=== PATIENT | male | born 1985 | race Caucasian/White ===

== ENCOUNTER 2024-10-24 04:06 | Emergency (ER) | payer MEDICAID, SELFPAY ==
[2024-10-24 04:20] VITALS: BP 120/94; BP 128/78; PULSE 100; PULSE 96; RESP 16; TEMP 36.3; O2SAT 97; O2SAT 98; BMI 28.7
--- NOTE | 2024-10-24 04:38 | PC.NURSE ---
Pt aox4, irritable during assessment, cooperative. VSS. No apparent distress noted. Denies SI/Hi at this time. Pt reports being upset earlier and making SI statements. Reports not being upset at this time and not having SI. Pt is changed over by security. Belongings secured. Lab work drawn. Unable to provide urine sample at this time. Pending lab results and physician eval.
[2024-10-24 04:59] LABS: Basophils Absolute Auto 0.1 X10*3/uL (0.0-0.2); Basophils Percent Auto 0.7 % (0-2); Eosinophils Absolute Auto 0.2 X10*3/uL (0.0-0.4); Eosinophils Percent Auto 1.9 % (0-4); Hematocrit 45.9 % (42.0-52.0); Hemoglobin 16.1 g/dl (14.0-18.0); Imm Gran Abs Auto 0.02 X10*3/uL (0.00-0.03); Imm Gran Pct Auto 0.2 % (0.0-0.4); Lymphocytes Absolute Auto 2.3 X10*3/uL (1.2-4.9); Lymphocytes Percent Auto 26.4 % (20-40); MANUAL DIFF FLAG NO; Mean Corpuscular HGB Conc 35.1 g/dl (31.0-36.0); Mean Corpuscular Hemoglobin 31.3 pg (27.0-33.0); Mean Corpuscular Volume 89.1 fL (80.0-98.0); Monocytes Absolute Auto 0.7 X10*3/uL (0.1-1.2); Monocytes Percent Auto 8.1 % (2-11); Neutrophils Absolute Auto 5.5 x10*3/uL (2.0-8.3); Neutrophils Percent Auto 62.7 % (45-73); Platelet Count 219 X10*3/uL (160-400); Red Blood Count 5.15 X10*6/uL (4.60-5.80); White Blood Count 8.8 X10*3/uL (4.8-10.8)
[2024-10-24 05:21] LABS: Alanine Aminotransferase 24 U/L (0-40); Albumin Level 4.5 g/dL (3.5-5.0); Alkaline Phosphatase 61 U/L (39-117); Anion Gap 14 (12-20); Aspartate Amino Transferase 22 U/L (5-37); Bilirubin Total 0.7 mg/dL (0.0-1.0); Blood Urea Nitrogen 12 mg/dL (9-16); Calcium 9.7 mg/dL (8.4-10.2); Carbon Dioxide 21 mmol/L (22-29); Chloride 107 mmol/L (96-108); Creatinine Clr Calc Pharmacy 117.1; Estimated Glomerular Filt Rate > 60; Ethanol < 10 mg/dL; Glucose Random 110 mg/dL (60-115); Potassium 3.4 mmol/L (3.3-5.1); Sodium 139 mmol/L (135-145); Total Protein 7.6 g/dL (6.5-8.0)
--- NOTE | 2024-10-24 05:48 | ED_ITS ---
HPI - Psych General Chief Complaint: Psychiatric Symptoms Stated Complaint: SI Time Seen by Provider: 10/24/24 04:27 Source: patient Mode of arrival: EMS Limitations: no limitations History of Present Illness ED Provider: HPI Narrative: Patient is brought by EMS on a section 12 from [place] police department's as significant other's called concerns for patient's safety as patient is making SI statements patient's used to be on medication for depression/bipolar 3 years ago stopped taking them as he thinks was giving him side effects denies any hallucination or delusions on arrival patient denied any SI Related Data Home Medications ?Medication ?Instructions ?Recorded ?Confirmed No Known Home Meds 10/24/24 10/24/24 Allergies Allergy/AdvReac Type Severity Reaction Status Date / Time acetaminophen [From VICODIN] Allergy Unknown NAUSEA & Unverified 08/04/20 15:59 VOMITING hydrocodone [From VICODIN] Allergy Unknown NAUSEA & Unverified 08/04/20 15:59 VOMITING sertraline [From Zoloft] Allergy Vomiting Verified 10/24/24 04:34 seasonal Allergy Unknown Vomiting Uncoded 10/24/24 04:34 Review of Systems 2 Review of Systems: Yes all other systems are reviewed and are negative PMFSH Social History Social History Smoked in Last 30 Days: Yes Use of substances other than those prescribed or required for medical reasons: Yes Substance Use Type: Marijuana Advance Directives: No Advance Directives Information Provided: Yes Do you have a plan to hurt others: No Plan Physical Exam 2 Vital Signs: Vital Signs: Last Vital Signs Temp 97.3 F 10/24/24 04:20 Pulse 96 10/24/24 04:20 Resp 16 10/24/24 04:20 BP 120/94 H 10/24/24 04:20 Pulse Ox 97 10/24/24 04:20 O2 Del Method Room Air 10/24/24 04:20 BMI result Body Mass Index 28.7 Appearance: Alert. Oriented X3. No acute distress. Eyes: PERRLA, No Nystagmus ENT: Pharynx normal. Oral Mucosa moist Neck: Normal inspection. Neck supple. CVS: Normal heart rate and rhythm. Pulses normal. Respiratory: No respiratory distress. Equal air entry bilateral, no wheezing/rales/rhonchi Abdomen: Soft and nontender. Bowel sounds are present, no mass palpable, no CVA tenderness Skin: Skin warm and dry. Normal skin color. Normal skin turgor. Extremities: No lower extremity edema. No calf tenderness psych: Anxious denies any SI or HI no hallucination or delusions Neuro: Oriented X 3. No motor deficit. No sensory deficit.No cerebellar signs , cranial nerves II-XII intact Medical Decision Making Medical Decision Making MDM Narrative: Patient with depression and suicidal will get care team involved Lab Data MDM Lab Attestation statement: I reviewed the patient's lab results. 10/24/24 04:43 10/24/24 04:43 Labs: Lab Results 10/24/24 Range/Units 04:43 WBC 8.8 (4.8-10.8) X10*3/uL RBC 5.15 (4.60-5.80) X10*6/uL Hgb 16.1 (14.0-18.0) g/dl Hct 45.9 (42.0-52.0) % MCV 89.1 (80.0-98.0) fL MCH 31.3 (27.0-33.0) pg MCHC 35.1 (31.0-36.0) g/dl RDW 13.0 (11.0-16.0) % Plt Count 219 (160-400) X10*3/uL MPV 10.0 (9.4-12.4) fL Immature Gran % (Auto) 0.2 (0.0-0.4) % Neut % (Auto) 62.7 (45-73) % Lymph % (Auto) 26.4 (20-40) % [place] % (Auto) 8.1 (2-11) % Eos % (Auto) 1.9 (0-4) % Baso % (Auto) 0.7 (0-2) % Lymph # (Auto) 2.3 (1.2-4.9) X10*3/uL [place] # (Auto) 0.7 (0.1-1.2) X10*3/uL Eos # (Auto) 0.2 (0.0-0.4) X10*3/uL Baso # (Auto) 0.1 (0.0-0.2) X10*3/uL Abs Immat Gran (auto) 0.02 (0.00-0.03) X10*3/uL Absolute Neuts (auto) 5.5 (2.0-8.3) x10*3/uL Absolute Nucleated RBC 0.000 (0.0-0.012) X10*3/uL Nucleated RBC % (auto) 0.0 (0.0-0.2) /100WBC Sodium 139 (135-145) mmol/L Potassium 3.4 (3.3-5.1) mmol/L Chloride 107 (96-108) mmol/L Carbon Dioxide 21 L (22-29) mmol/L Anion Gap 14 (12-20) BUN 12 (9-16) mg/dL Creatinine 0.94 (0.5-1.4) mg/dL Estim Creat Clear Calc 117.1 Estimated GFR > 60 Random Glucose 110 (60-115) mg/dL Calcium 9.7 (8.4-10.2) mg/dL Total Bilirubin 0.7 (0.0-1.0) mg/dL AST 22 (5-37) U/L ALT 24 (0-40) U/L Alkaline Phosphatase 61 (39-117) U/L Total Protein 7.6 (6.5-8.0) g/dL Albumin 4.5 (3.5-5.0) g/dL Ethyl Alcohol < 10 mg/dL Discharge Plan Discharge Clinical Impression: Bipolar disorder, Suicidal ideation Patient Disposition: Still a Patient Prescriptions: No Action No Known Home Meds Interventions: [place]-Suicide Risk Severity Scale Last Done: 10/24/24 04:37 Print Language: Hebrew
[2024-10-24 11:12] VITALS: BP 147/87; PULSE 98; RESP 18; TEMP 36.7; O2SAT 98
[2024-10-24 12:08] LABS: Amphetamine Screen Urine Not Detected (Not Detect); Barbiturates, Urine Not Detected (Not Detect); Benzodiazepines Screen Urine Not Detected (Not Detect); Buprenorphine Scr Not Detected (Not Detect); Cannabinoid Screen Urine POSITIVE (Not Detect); Cocaine Screen Urine Not Detected (Not Detect); Fentanyl, urine Not Detected (Not Detect); Methadone Screen, Urine Not Detected (Not Detect); Opiate Screen Urine Not Detected (Not Detect); Oxycodone Screen Urine Not Detected (Not Detect); Phencyclidine Screen Urine Not Detected (Not Detect)
[2024-10-24 16:49] VITALS: BP 131/72; PULSE 77; RESP 19; TEMP 36.1; O2SAT 98
--- NOTE | 2024-10-24 21:07 | MHC.CARE ---
Addendum entered by Jazmyne Simental LCSW 10/24/24 21:13: Sister Sheba will pick pt up after 9am- please call at [phone] Original Note: Father called, he reports no immediate safety concerns if pt is d/c with referrals to op providers and [facility] to assist with transportation. CARE team attempted to meet with pt to safety plan and discuss d/c plans. Pt was resting. CARE team will f/u wit pt in the morning.
--- NOTE | 2024-10-24 23:28 | PC.NURSE ---
Patient sleeping, RR even and unlabored, chest rise and chest fall noted. Will continue to monitor.
[2024-10-25 02:55] VITALS: BP 110/72; PULSE 86; RESP 16; TEMP 36.8; O2SAT 98
--- NOTE | 2024-10-25 06:10 | PC.NURSE ---
Interjected himself into staff conversation which led to patient becoming upset and very religiously preoccupied. Patient stormed back to his room, refusing to communicate any wants or needs with staff at this time. Will continue to monitor the situation.
--- NOTE | 2024-10-25 08:42 | MHC.CARE ---
Per CARE team daily log note: Patient was seen for assessment and disposition is for discharge. Safety plan reviewed with patient prior to DC, patient was irritable and angry stating I just want to get out of here and leave . Patient was informed [facility] follow up referral will be made on his behalf and explained [facility] services to patient. ED provider was notified of disposition for discharge.
[2024-10-25 09:47] VITALS: BP 130/82; PULSE 67; RESP 14; TEMP 36.8; O2SAT 97
--- NOTE | 2024-10-25 10:53 | MHC.CARE ---
Safety plan reviewed prior to discharge and referral to [facility] will be made per your requests to connect with outpatient prodders in the community.
== END 2024-10-25 10:11 | disposition home or self-care (01) ==
PROVIDERS: Internal Medicine; Emergency Provider Emergency Medicine Emergency Medical Services
DX: F31.9 Bipolar disorder, unspecified (principal); R45.851 Suicidal ideations; Z91.148 Patient's other noncompliance with medication regimen for other reason
CPT/HCPCS: 36415; 80053; 80307; 85025; 99285

== ENCOUNTER 2025-06-11 11:00 | Inpatient (IN) | payer MEDICAID, OTHER, SELFPAY ==
--- NOTE | ~2025-06-11 | XR_ITS ---
CLINICAL HISTORY: Fell landed on R ankle x1 week ago. 3 view right ankle Comparison: None provided Findings: Bones intact. No dislocations. No significant arthritic change or erosions. No ankle effusion. No radiopaque foreign body. IMPRESSION: 1. No acute findings. This document has been electronically signed by: Hannah Diana MD on 06/11/2025 18:11:58
[2025-06-11 11:21] VITALS: BP 126/88; PULSE 72; RESP 16; TEMP 36.7; O2SAT 97; BMI 28.1
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
[2025-06-11 11:37] LABS: MANUAL DIFF FLAG NO
[2025-06-11 11:38] LABS: Hematocrit 42.9 % (42.0-52.0); Hemoglobin 15.0 g/dl (14.0-18.0); Imm Gran Abs Auto 0.01 X10*3/uL (0.00-0.03); Imm Gran Pct Auto 0.2 % (0.0-0.4); Lymphocytes Absolute Auto 1.8 X10*3/uL (1.2-4.9); Mean Corpuscular HGB Conc 35.0 g/dl (31.0-36.0); Mean Corpuscular Hemoglobin 32.1 pg (27.0-33.0); Mean Corpuscular Volume 91.7 fL (80.0-98.0); NRBC Abs Auto 0.000 X10*3/uL (0.0-0.012); NRBC Pct Auto 0.0 /100WBC (0.0-0.2); Platelet Count 196 X10*3/uL (160-400); Red Blood Count 4.68 X10*6/uL (4.60-5.80); White Blood Count 5.6 X10*3/uL (4.8-10.8)
[2025-06-11 11:55] LABS: Acetaminophen LAB < 3 mcg/mL (<30); Salicylate < 5.0 mg/dL (15-30)
[2025-06-11 11:56] LABS: Alanine Aminotransferase 19 U/L (0-40); Albumin Level 4.6 g/dL (3.5-5.0); Alkaline Phosphatase 62 U/L (39-117); Anion Gap 11 (12-20); Aspartate Amino Transferase 20 U/L (5-37); Blood Urea Nitrogen 14 mg/dL (9-16); Calcium 8.9 mg/dL (8.4-10.2); Carbon Dioxide 23 mmol/L (22-29); Chloride 110 mmol/L (96-108); Creatinine Clr Calc Pharmacy 127.0; Estimated Glomerular Filt Rate > 60; Potassium 3.8 mmol/L (3.3-5.1); Sodium 140 mmol/L (135-145); Total Protein 7.1 g/dL (6.5-8.0)
--- OUTSIDE RECORDS SUMMARY | 2025-06-11 12:56 | XMS_ITS | Clinical Summary ---
Author Organization [facility] Address [address] [place] [address] Care Team Providers Care Mortgage Closer Name Role Phone Selena Vanegas [facility] Primary Care Provider [phone] Source Comments PLEASE NOTE, if this patient is a minor, it may be UNLAWFUL to discuss sensitive information that is contained in these records (such as FAMILY PLANNING, MENTAL HEALTH or SUBSTANCE ABUSE) with the minor patient's parent or other person without the patient's specific authorization.[facility] Allergies Active Allergy Reactions Criticality Noted Date Comments Sertraline Photosensitivity High 11/01/2017 Medications [place].stocking ,thigh,reg,medIn dications:Sympto matic varicose veins of right lower extremity Venal insufficiency. Right lower extremity. 22-30 mm Put on in the am and remove at night 1 Each 2 8 Active dextromethorphan -guaifenesin (ROBITUSSIN DM) 10-100 mg/5 mL liquidIndication s:Viral upper respiratory tract infection Take 5 mL by mouth every 4 to 6 (four to six) hours as needed for cough 118 mL 9 Active QUEtiapine (SEROQUEL) 50 mg tabletIndication s:PTSD (post-traumatic stress disorder) Take one tab by mouth three times per day 90 Tab 2 9 Active mirtazapine (REMERON) 45 mg tabletIndication s:PTSD (post-traumatic stress disorder) Take one tab by mouth daily at bedtime 30 Tab 1 9 Active cloNIDine HCl (CATAPRES) 0.1 mg tabletIndication s:Anxiety and depression Take 1 Tab by mouth 2 (two) times daily 60 Tab 1 9 Active ibuprofen 600 mg tabletIndication s:Chronic pain of right knee Take 1 Tab by mouth 3 (three) times daily as needed for pain 60 Tab 1 9 Active fexofenadine (ARTURO) 180 mg tabletIndication s:Seasonal allergies Take 1 Tab by mouth once daily For allergies 30 Tab 2 9 Active Active Problems Problem Noted Date Diagnosed Date Refused influenza vaccine 09/06/2019 Facial cellulitis 01/27/2019 Overview (01/27/2019): Seen at ED 01/27/18 - Dx Facial cellulitis, started on Keflex. Varicose veins of right lower extremity 10/02/20 Overview (11/25/2018): 11-21-18 - had duplex u/s done on 11-21-18 - confirmed substantial reflux in great saphenous vein. Compression stockings didn't help. Will be a candidate for VNUS FR ablation. Saw vascular on 09-26-18 - limited doppler u/s demonstrated substantial reflux in right great saphenous vein and major branches around knee. Will trial compression stockings, RTC in 6-8 weeks for formal duplex u/s, if no improvement will consider ablation of great saphenous vein. PTSD (post-traumatic stress disorder) - Moderate 07/08/2018 Major depressive disorder, r ecurrent episode, moderate ([facility]) 07/08/2018 Smoking 11/01/2017 Resolved Problems Problem Noted Date Diagnosed Date Resolved Date DM (diabetes mellitus) ([facility]) 07/14/2018 07/14/2018 Anxiety and depression 11/01/201707/08 Immunizations Immunization Administration Dates Next Due TDAP 07/14/2018 Social History Tobacco Use Types Packs/Day Years Used Date Smoking Tobacco: Every Day Cigarettes 0.5 20 Smokeless Tobacco: Current Alcohol Use Standard Drinks/Week Comments Yes 0 (1 standard drink = 0.6 oz pur e alcohol) 1-2 beers weekly Social Connections Answer Date Recorded Connectedness 0 08/07/2024 Financial Resource Strain Answer Date R ecorded Financial Resource Strain 0 2018 Stress Answer Date Recorded Stress 0 07/07/2019 Physical Activity Answer Date Recorded Physical Activity 0 07/07/2019 Food Insecurity Answer Date Recorded Food 0 08/13/2024 Transportation Needs Answer Date Record ed Transportation 0 07/07/2019 Housing Stability Answer Date Recorded Housing 0 07/07/2019 Safety and Environment Answer Date Mumtaz rded Safety 0 07/07/2019 Utilities Answer Date Recorded Utilities 0 07/07/2019 Employment Answer Date Recorded Stress 0 08/07/2024 Sex and Gender Information Value Date Recorded Sex Assigned at Male 11/01/2017 10:26 AM PST Legal Sex Male 8:08 AM PDT Gender Identity Male 11/01/2017 10:26 AM PST Sexual Orientation Straight 11/01/2017 10 :26 AM PST Last Filed Vital Signs Vital Sign Reading Time Taken Comments Blood Pressure 112/68 08/24/2019 3:53 PM EDT Pulse 64 08/24/2019 3:53 PM EDT Temperature 37.1 C (98.7 F) 08/24/2019 3:53 PM EDT Respiratory Rate 16 08/24/2019 3:53 PM EDT Oxygen Saturation - - Inhaled Oxygen Concentration - - Weight 102.5 kg (225 lb 14.4 oz) 08/24/2019 3:53 PM EDT Height 175.3 cm (5' 9 ) 08/24/2019 3:53 PM EDT Body Mass Index 33.36 08/24/2019 3:53 PM EDT Plan of Treatment Health Maintenance Due Date Last Done Comments Anxiety Screening 1983 Hepatitis C Screening 1983 Imm-Hepatitis B (1 of 3 - 19 + 3-dose series) 2002 Imm-Pneumococcal (1 of 2 - PCV) 2002 Depression Monitoring 02/25/2019 11/27/2018 , 04/30/2018, 11/01/2017 Annual Wellness (Adult): Ind icated (All Coverage) 07/14/2019 07/14/2018 Diabetes Screening 07/14/2019 07/14/2018 Lipid Screening 07/14/2019 07/14/2018 Tobacco Cessation Counseling (#1) 07/14/2019 018 Tobacco Screening 07/14/2019 07/14/2018 Hypertension Screening (#1) 08/23/2020 [id number] ( season) 2024 Alcohol and Drug Screen 11/18/2024 11/27/19 19, 04/30/2018, 11/01/2017 Imm-DTaP/Tdap/Td (2 - Td or Tdap) 07/14/2028 018 HIV Screening Completed 07/14/2018 Imm-Influenza Discontinued Procedures Procedure Name Priority Date/Time Associated Diagnosis Comments ANTIBODY HIV-1&HIV-2 SINGLE RESULT Routine 07/14/2018 3:18 PM EDT Screening for human immunodeficiency virus COMPREHENSIVE METABOLIC PANEL Routine 07/14/2018 3:18 PM EDT Routine general medical examination at a health care facility LIPID PANEL Routine 07/14/2018 3:18 PM EDT Routine general medical examination at a health care facility from Last 3 Months or Most Recently Relevant to Health Maintenance Results * HIV-1 & HIV-2 ANTIBODIES (07/14/2018 3:18 PM EDT) Pathologist [facility] HIV 1 AND 2 ANTIBODY SCREEN NEGATIVE NEGATIVE [facility] Comment: This assay is a 4th generation assay allowing for earlier detection of HIV infection by detecting the presence of the HIV-1 p24 antigen as well as the traditional antibodies to HIV type 1 (including group O) and type 2. Use of a 4th generation assay is the current CDC recommendation for HIV screening. Blood specimen (specimen) Blood / Unknown 07/14/2018 3:18 PM EDT 07/14/2018 3:31 PM EDT Narrative [facility] - 07/14/2018 9:06 PM EDT [facility] [employer] [address] [place] [address] PT ID [id number] ORD# [id number] us [facility] - BLOOD DRAW Final Result [facility] [address] [place] [address], * (ABNORMAL) LIPID PANEL (07/14/2018 3:18 PM EDT) [facility] CHOLESTEROL 198 0 - 200 mg/dL [facility] TRIGLYCERIDES 74 0 - 150 mg/dL [facility] HDL CHOLESTEROL 67 >40 mg/dL [facility] LDL CALCULATED 117(H) 0 - 100 mg/dL [facility] TC-HDLC RATIO 3.0 0 - 4.4 mg/dL [facility] Blood specimen (specimen) Blood / Unknown 07/14/2018 3:18 PM EDT 07/14/2018 3:31 PM EDT Narrative [facility] - 07/14/2018 8:18 PM EDT [address] [address] PT ID [id number] ORD# [id number] us [facility] - BLOOD DRAW Final Result [facility] [address] [place] [address], * (ABNORMAL) COMPRE METAB PANEL (CMP) (07/14/2018 3:18 PM EDT) GLUCOSE 60(L) 70 - 100 mg/dL [facility] Comment:Reference range appl icable to fasting specimens only BUN 14 5 - 25 mg/dL [facility] CREAT 0.82 0.7 - 1.3 mg/dL [facility] GLOMERULAR FILTRATION RATE > 60 [facility] Comment: If patient is -Tristanian, multiply result by 1.21 Chronic Kidney Disease: < 60 ml/min/1.73 square meters Kidney Failure: < 15 ml/min/1.73 square meters SODIUM 140 133 - 145 mmol/L [facility] POTASSIUM 4.3 3.5 - 5.5 mmol/L [facility] CHLORIDE 104 96 - 110 mmol/L [facility] CO2 27 21 - 32 mmol/L [facility] ANION GAP 9 3 - 11 [facility] CALCIUM 8.6 8.5 - 10.5 mg/dL [facility] TOTAL PROTEIN 7.2 6.0 - 8.0 G/dL [facility] ALBUMIN 3.8 3.2 - 5.0 G/dL [facility] BILI, TOTAL 0.5 0.0 - 1.4 mg/dL [facility] SGOT 40 10 - 42 U/L [facility] SGPT 41 10 - 60 U/L [facility] ALK PHOS 61 42 - 121 U/L [facility] Blood specimen (specimen) Blood / Unknown 07/14/2018 3:18 PM EDT 07/14/2018 3:31 PM EDT Narrative [facility] - 07/14/2018 8:18 PM EDT [facility] [address] [place] [address] PT ID [id number] ORD# [id number] [facility] - BLOOD DRAW Final Result [facility] [address] [place] [address], from Last 3 Months or Most Recently Relevant to Health Maintenance Insurance [place] [employer] [facility] [employer] Care Teams Mortgage Closer Relationship Specialty Start Date End Date Selena Vanegas FNP [address] [place] [address] [id number] [facility] - General 06/01/19
[2025-06-11 18:32] LABS: Appearance Urine Clear; Glucose Urine UA Negative (Negative); PH 6.5 (5.0-9.0); Specific Gravity - Urine >= 1.030 (1.005-1.025); UMIC TRIGGER UACC YES
[2025-06-11 18:34] LABS: UACC Culture Trigger YES
[2025-06-11 18:38] LABS: Cannabinoid Screen Urine POSITIVE (Not Detect)
[2025-06-11 20:38] VITALS: BP 114/80; PULSE 59; RESP 18; TEMP 36.6; O2SAT 98
--- NOTE | 2025-06-11 20:42 | PC.NURSE ---
assumed care for pt at 1900, pt noted to be resting in bed. pt awoke from bed [id number] requesting an update on peña of care, stating he is anxious and agitated because he has not been told what was going on and has been waiting for his nicotine gum. Pt updated on plan of care. Pt able to be redirected, given nicotine gum and medicated pt per jan. pt now calm and cooperative resting in bed quietly watching tv. pts needs met at this time. plan of care ongoing
[2025-06-12 06:30] VITALS: BP 92/59; PULSE 57; RESP 17; TEMP 36.8; O2SAT 96
--- NOTE | 2025-06-12 08:37 | PC.NURSE ---
Assumed care of patient at 0645, patient appears to be in no apparent distress this am, resting in bed. Pt anxious about being seen today. Continue plan of care for psychiatry consult
--- NOTE | 2025-06-12 11:49 | PC.NURSE ---
Late entry: Pt extremely irritable, yelling at staff I signed in here as an outpatient. Does this look like fucking outpatient to you? I am not staying here, I don't fucking care
--- NOTE | 2025-06-12 13:26 | MHC.CARE ---
Per psych consult Pt will now be adult iploc.
--- NOTE | 2025-06-12 15:42 | PC.NURSE ---
Pt calmer after interaction with psychiatrist
--- NOTE | 2025-06-12 15:44 | PC.NURSE ---
Pt refusing to allow staff near him, refused vital signs
[2025-06-12 15:45] VITALS: RESP 18
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
--- NOTE | 2025-06-12 19:13 | PC.NURSE ---
Took over care from Raghu Gibbs, to resting in bed, no sign of distress.
--- NOTE | 2025-06-13 01:23 | PC.NURSE ---
Pt is sleeping.
[2025-06-13 06:23] VITALS: BP 111/60; PULSE 50; RESP 16; TEMP 36.5; O2SAT 98
--- NOTE | 2025-06-13 07:07 | PC.NURSE ---
Assumed care of patient at 0645, patient appears to be sleeping, respirations even and unlabored, no apparent distress is noted. Continue plan of care for IPLOC
--- NOTE | 2025-06-13 10:46 | PHA.MEDREC ---
Addendum entered by Navneet Krishnamurthy RPh 06/13/25 10:59: MED REC REVIEWED BY [facility] Original Note: Pharmacy Consult ? Medication Reconciliation Reviewed med rec done by nursing.
--- NOTE | 2025-06-13 11:28 | PC.NURSE ---
Pt had episode of emotional upset after speaking with CARE team clinician during mental status update. Pt became angry that he is being held here against his will stating what you guys don't understand is that I came here for outpatient help and now I am locked in this skilled nursing cell . CARE team clinician provided pt with compliance attorney information per patient request. Pt did call and leave a message with the number called
--- NOTE | 2025-06-13 12:23 | PC.NURSE ---
patient had another episode of anger, observed to be yelling within his room, when this RN attempted to speak with patient, he began shouting get me my fucking merchandise director, I am not being represented right now, I need you to get me the fucking merchandise director before you talk to me This RN attempted to ask the patient if he left his name/number with the senior attorney he called earlier in the day however pt cut this RN off Nope, you're threatening me, that is against my right, I am pleasing the fifth . Pt then got up from his bed, slammed the bedroom door in this RN's presence and returned to bed. Pt has been visualizes self dialoguing with himself repeating I am in a halfway cell, I need a merchandise director, no one has the right to speak to me, I am being held here
[2025-06-13 16:27] VITALS: RESP 14
--- NOTE | 2025-06-13 16:27 | PC.NURSE ---
pt sitting in common area watching TV at this time
--- NOTE | 2025-06-13 18:49 | PC.NURSE ---
Pt sitting in common area, perseverating on the poisoning of vaccines and the covid pandemic
--- NOTE | 2025-06-13 19:35 | PC.NURSE ---
Pt continues to perseverate on vaccines, [employer] and fibers being placed into people's bodies. Pt began escalating, upsetting other patients. When asked to return to his room, pt became more upset. Security called to bedside for standby. Pt eventually did go back to his room. This RN attempted to educate patient that he was free to roam around unit again when he was feeling calmer and no longer yelling however pt continued to interrupt this RN . Pt was left alone in his room to decompress per his request. Safety checks remain in place
[2025-06-13 21:10] VITALS: RESP 16
--- NOTE | 2025-06-14 00:38 | PC.NURSE ---
PT declined oral care.
--- NOTE | 2025-06-14 03:33 | PC.NURSE ---
Assumed care of pt from Daniela FLORES at 0300. Pt resting in bed, no apparent distress at this time. Safety checks in place.
--- NOTE | 2025-06-14 06:15 | PC.NURSE ---
Addendum entered by Cassandra Lynn RN 06/14/25 06:23: pt moved chair to the front of door and staring out at staff. Safety checks remain in place. Original Note: patient requesting to use the phone to call Human Resources. Tech explained that the phone is not on until 7 am. Pt back into room, closed door and saying thngs behind the door. Tech attempted to get vitals and pt is refusing at this time. Refusing to answer any questions or allow staff to do anything until he can talk to Human Resources.
[2025-06-14 06:17] VITALS: RESP 18
--- NOTE | 2025-06-14 07:06 | PC.NURSE ---
assumed care of patient at 0645, patient is awake and alert in room, upset and yelling at staff about the phone not being on, once again explained to patient phone does not turn on until 0700. at 0700, phone was turned on and patient remained yelling at staff about calling human resources and states no one is helping him. patient told that the phone is on and he can now call whomever he would like. patient refusing vitals/labs/food at this time. standing in doorway watching staff with arms folded.
--- NOTE | 2025-06-14 07:35 | MHC.EDTECH ---
Patient becoming increasingly agitated in common area, started yelling at staff stating; I'm a human, I have rights, I'm suing all of you for neglect. RN and this tech redirected patient verbally to his room. Patient in his room continuing to yell about his care.
--- NOTE | 2025-06-14 07:39 | MHC.EDTECH ---
Patient refusing breakfast tray.
--- NOTE | 2025-06-14 08:59 | PC.NURSE ---
patient comes out of room tearful requesting to call his mom, patient given his mothers phone number.
--- NOTE | 2025-06-14 09:13 | PC.NURSE ---
patient mother called upset about information she is receiving via patient by phone. patient mother yelling at this RN stating patient is calling her saying he is bleeding out of his mouth and patients not getting any help. patient mother updated that patient is unable to give consent at this time due to current mentation, whenever patient tries to speak to staff patient tells staff to get the fuck away from me patient is unapproachable at this time. patient mom agreed to speak to pay, call was tx to patient phone. patient mom stated she was very thankful for the current update and clarification this RN gave to her over the phone.
--- NOTE | 2025-06-14 09:27 | PC.NURSE ---
ED provider notified that patient states his mouth is bleeding, ED provider states he will be in to see patient. patient is now in room sitting on his bed.
--- NOTE | 2025-06-14 12:22 | PC.NURSE ---
Report given to M3 RN, awaiting arrival for transport to floor.
[2025-06-14 13:40] VITALS: BP 134/88; PULSE 80; RESP 18; TEMP 36.8; O2SAT 95
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
[2025-06-14 20:00] VITALS: BP 116/65; PULSE 82; RESP 16; TEMP 36.8; O2SAT 98
[2025-06-15 07:37] VITALS: BP 92/50; PULSE 54; RESP 18; TEMP 36.9; O2SAT 95
[2025-06-15 08:13] LABS: Hemoglobin A1C 120.2453 umol/L; Total Hemoglobin (HGBA1C) 4002.2034 umol/L
[2025-06-15 08:22] LABS: Alanine Aminotransferase 26 U/L (0-40); Albumin Level 4.5 g/dL (3.5-5.0); Alkaline Phosphatase 58 U/L (39-117); Anion Gap 11 (12-20); Aspartate Amino Transferase 21 U/L (5-37); Blood Urea Nitrogen 22 mg/dL (9-16); Calcium 9.4 mg/dL (8.4-10.2); Carbon Dioxide 27 mmol/L (22-29); Chloride 109 mmol/L (96-108); Cholesterol 189 mg/dL (<200); Creatinine Clr Calc Pharmacy 124.0; Estimated Glomerular Filt Rate > 60; HDL Cholesterol 46 mg/dL (>40); Potassium 4.5 mmol/L (3.3-5.1); Sodium 142 mmol/L (135-145); Total Protein 6.8 g/dL (6.5-8.0); Triglycerides 84 mg/dL (<150)
--- NOTE | 2025-06-15 08:52 | P.PNPSI_ITS ---
Subjective Subjective Date of Service: 06/15/25 Reason For Visit: Crisis Subjective Notes: Conditional Voluntary Interim History: Active on unit. attending groups. Patient reports feeling okay today; denies any side effects from starting medications. denies SI/HI/VH/AH. He reports sleeping well last night. denies any withdrawal symptoms. DC CIWA. Continue current tx plan. Medication Compliance: Yes Side effects from medications: No Attending Groups: Yes Mental Status Exam Mental Status Exam Narrative: Pt is alert and oriented; behavior is cooperative and calm; dressed in casual attire; mood is described as good ; eye contact appropriate; Speech is normal rate, volume and not pressured; thought process is organized; Thought content is on tx; did not make any paranoid statements today; denies SI/HI/VH/AH. Diagnostics Vital Signs (24Hr): Vital Signs - 24 hr 06/14/25 13:40 06/14/25 20:00 06/15/25 07:37 Temperature 98.2 F 98.2 F 98.5 F Pulse Rate 80 82 54 Respiratory Rate 18 16 18 Blood Pressure 134/88 116/65 92/50 L Pulse Oximetry 95 98 95 Oxygen Delivery Method Room Air Room Air Room Air BMI result Body Mass Index 28.1 Labs 06/11/25 11:32 06/15/25 07:28 Labs: Laboratory Results - last 48 hr 06/15/25 07:28 Sodium 142 Potassium 4.5 Chloride 109 H Carbon Dioxide 27 Anion Gap 11 L BUN 22 H Creatinine 0.87 Estim Creat Clear Calc 124.0 Estimated GFR > 60 Random Glucose 82 Estimat Average Glucose 94 Hemoglobin A1c % 4.9 Calcium 9.4 Total Bilirubin 0.4 AST 21 ALT 26 Alkaline Phosphatase 58 Total Protein 6.8 Albumin 4.5 Triglycerides 84 Cholesterol 189 LDL Cholesterol, Calc 127 H HDL Cholesterol 46 Medications Medications Current Medications Al Hydroxide/Mg Hydroxide (Magnesium Hydrox/Alum Hydrox 30 Ml Oral.Susp) 30 ml PO Q6H PRN PRN Reason: Heartburn/Nausea Hydroxyzine HCl (Hydroxyzine Hcl 25 Mg Tablet) 25 mg PO Q6H PRN PRN Reason: mild anxiety [place] Carbonate ([place] Carbonate Er 300 Mg Tablet.Er) 600 mg PO BEDTIME [facility] Last Admin: 06/14/25 22:37 Dose: 600 mg Lorazepam (Lorazepam 1 Mg Tablet) 1 mg PO Q2H PRN PRN Reason: CIWA 8-11 Lorazepam (Lorazepam 1 Mg Tablet) 2 mg PO Q2H PRN PRN Reason: CIWA 12-15 Lorazepam (Lorazepam 1 Mg Tablet) 3 mg PO Q2H PRN PRN Reason: CIWA > 15, and call Magnesium Hydroxide (Milk Of Magnesia 30 Ml Oral.Susp) 30 ml PO DAILY PRN PRN Reason: Constipation Nicotine (Nicotine 21 Mg Patch.Td24) 21 mg TRANSDERMA DAILY [facility] Last Admin: 06/15/25 08:34 Dose: Not Given Nicotine Polacrilex (Nicotine Polacrilex 2 Mg Gum) 4 mg BUCCAL Q2H PRN PRN Reason: Nicotine Cravings Last Admin: 06/15/25 08:36 Dose: 4 mg Olanzapine (Olanzapine 5 Mg Tablet) 5 mg PO Q4H PRN PRN Reason: agitation Olanzapine (Olanzapine 5 Mg Tablet) 5 mg PO BEDTIME [facility] Last Admin: 06/14/25 22:37 Dose: 5 mg Thiamine HCl (Thiamine Hcl 100 Mg Tablet) 100 mg PO DAILY [facility] Last Admin: 06/15/25 08:36 Dose: Not Given Trazodone HCl (Trazodone Hcl 50 Mg Tablet) 50 mg PO BEDTIME MRX1 PRN PRN Reason: Insomnia Allergies Allergies Allergy/AdvReac Type Severity Reaction Status Date / Time acetaminophen (From VICODIN) Allergy Unknown NAUSEA & Verified 06/11/25 11:22 VOMITING hydrocodone (From VICODIN) Allergy Unknown NAUSEA & Verified 06/11/25 11:22 VOMITING sertraline (From Zoloft) Allergy Vomiting Verified 06/11/25 11:22 seasonal Allergy Mild Itchy Eyes Uncoded 10/24/24 15:59 Assessment & Plan Assessment & Plan (1) Bipolar disorder: Status: Acute Code(s): F31.9 - Bipolar disorder, unspecified (2) PTSD (post-traumatic stress disorder): Status: Acute Code(s): F43.10 - Post-traumatic stress disorder, unspecified Plan Patient is a 40-year-old male with history of bipolar disorder and PTSD who presented to ER due to suicidal ideation secondary to increased life stressors. Plan: CV 15 minute safety checks Start: Lihtium ER 600mg PO bedtime Zyprexa 5mg PO bedtime obtain collateral referral to outpatient psychiatric providers encourage groups discharge planning 06/15: Active on unit. attending groups. Patient reports feeling okay today; denies any side effects from starting medications. denies SI/HI/VH/AH. He reports sleeping well last night. denies any withdrawal symptoms. SHEEBA MODI. Continue current tx plan. Patient educated on: diagnosis, medication risk/benefits and therapeutic strategies Reason for continued inpatient stay Substantial Risk for: med/psych decompensation Time Spent With Patient Time: Total time managing care of this patient today _20___ minutes.
[2025-06-15 09:20] VITALS: BP 108/67; PULSE 62
[2025-06-15 20:00] VITALS: BP 131/78; PULSE 80; RESP 16; TEMP 36.6; O2SAT 99
[2025-06-16 08:00] VITALS: BP 126/79; PULSE 66; RESP 17; TEMP 36.4; O2SAT 99
--- NOTE | 2025-06-16 18:31 | HO.PSYCHPN ---
Subjective Subjective Date of Service: 06/16/25 Reason For Visit: Crisis Subjective Notes: Conditional Voluntary Healthcare Proxy: No Guardianship: No Medical Problems Affecting Mental Status: No Interim History: Medical record and nursing notes reviewed; case discussed during rounds with team/nursing staff, and met with patient for supportive therapy/psychoeducation, as well as medication management. Patient slept for 5 hours last night, was medication compliant, except for nicotine patch. Denies side effects. Reports that he has been sleeping and eating better. Denies paranoid thoughts but reports that he was feeling that way when he was down to the ED prior to be admitted here on the floor. He attended groups, reported that artkwork help him distract himself from racing thoughts, and is a coping skills for him. Observed visible, social, he when out for fresh air break. Medication Compliance: Yes (Except for nicotine patch) Side effects from medications: No Attending Groups: Yes Review of Systems Acute medical concerns: No Medical Review of Systems: unchanged Review of Systems Review of Systems Constitutional: Denies fatigue and Denies fever(s) Cardiovascular: Denies chest pain and Denies dyspnea Respiratory: Denies dyspnea Gastrointestinal: Denies abdominal pain Psychiatric: denies suicidal ideation Endocrine: Denies fatigue Yes all other systems are reviewed and are negative Mental Status Exam Mental Status Exam Narrative: Pt is alert and oriented; behavior is cooperative and calm; dressed in casual attire; mood is described as good and better ; eye contact appropriate; Speech is normal rate, volume and not pressured; with slighly herperverabal, thought process is more organized; Thought content is on tx; did not make any paranoid delusional statements; today. Last time experience paranoid thoughts was when he was in the ED, denies SI/SIB/HI/VH/AH. Diagnostics Vital Signs (24Hr): Vital Signs - 24 hr 06/15/25 20:00 06/16/25 08:00 Temperature 97.8 F 97.5 F Pulse Rate 80 68 Respiratory Rate 16 17 Blood Pressure 131/78 126/79 Pulse Oximetry 99 99 Oxygen Delivery Method Room Air Room Air BMI result Body Mass Index 28.1 Labs 06/11/25 11:32 06/15/25 07:28 Labs: Laboratory Results - last 48 hr 06/15/25 07:28 Sodium 142 Potassium 4.5 Chloride 109 H Carbon Dioxide 27 Anion Gap 11 L BUN 22 H Creatinine 0.87 Estim Creat Clear Calc 124.0 Estimated GFR > 60 Random Glucose 82 Estimat Average Glucose 94 Hemoglobin A1c % 4.9 Calcium 9.4 Total Bilirubin 0.4 AST 21 ALT 26 Alkaline Phosphatase 58 Total Protein 6.8 Albumin 4.5 Triglycerides 84 Cholesterol 189 LDL Cholesterol, Calc 127 H HDL Cholesterol 46 Medications Medications Current Medications Al Hydroxide/Mg Hydroxide (Magnesium Hydrox/Alum Hydrox 30 Ml Oral.Susp) 30 ml PO Q6H PRN PRN Reason: Heartburn/Nausea Hydroxyzine HCl (Hydroxyzine Hcl 25 Mg Tablet) 25 mg PO Q6H PRN PRN Reason: mild anxiety [place] Carbonate ([place] Carbonate Er 300 Mg Tablet.Er) 600 mg PO BEDTIME [facility] Last Admin: 06/15/25 22:29 Dose: 600 mg Magnesium Hydroxide (Milk Of Magnesia 30 Ml Oral.Susp) 30 ml PO DAILY PRN PRN Reason: Constipation Nicotine Polacrilex (Nicotine Polacrilex 2 Mg Gum) 4 mg BUCCAL Q2H PRN PRN Reason: Nicotine Cravings Last Admin: 06/16/25 13:20 Dose: 4 mg Olanzapine (Olanzapine 5 Mg Tablet) 5 mg PO Q4H PRN PRN Reason: agitation Olanzapine (Olanzapine 5 Mg Tablet) 5 mg PO BEDTIME [facility] Last Admin: 06/15/25 22:29 Dose: 5 mg Trazodone HCl (Trazodone Hcl 50 Mg Tablet) 50 mg PO BEDTIME MRX1 PRN PRN Reason: Insomnia Allergies Allergies Allergy/AdvReac Type Severity Reaction Status Date / Time acetaminophen (From VICODIN) Allergy Unknown NAUSEA & Verified 06/11/25 11:22 VOMITING hydrocodone (From VICODIN) Allergy Unknown NAUSEA & Verified 06/11/25 11:22 VOMITING sertraline (From Zoloft) Allergy Vomiting Verified 06/11/25 11:22 seasonal Allergy Mild Itchy Eyes Uncoded 10/24/24 15:59 Assessment & Plan Assessment & Plan (1) Bipolar disorder: Status: Acute Code(s): F31.9 - Bipolar disorder, unspecified (2) PTSD (post-traumatic stress disorder): Status: Acute Code(s): F43.10 - Post-traumatic stress disorder, unspecified Plan Patient is a 40-year-old male with history of bipolar disorder and PTSD who presented to ER due to suicidal ideation secondary to increased life stressors. Plan: CV 15 minute safety checks Start: Lihtium ER 600mg PO bedtime Zyprexa 5mg PO bedtime obtain collateral referral to outpatient psychiatric providers encourage groups discharge planning 06/15: Active on unit. attending groups. Patient reports feeling okay today; denies any side effects from starting medications. denies SI/HI/VH/AH. He reports sleeping well last night. denies any withdrawal symptoms. SHEEBA PASTRANAWA. Continue current tx plan. 06/16/25: Slept for 5 hours last night, visible, social, appropriate, however hypomanic, pleasant, and cooperative, attended groups, coloring, went to fresh air break. Compliant with medications. No side effects. Denies delusional or paranoid thoughts, however reported that he felt that way when he was in the emergency room thinking people poisoning his food but not anymore. Patient educated on: diagnosis, medication risk/benefits and therapeutic strategies Informed Consent: understands Reason for continued inpatient stay Substantial Risk for: med/psych decompensation Time Spent With Patient Time: Total time managing care of this patient today ____ minutes.
[2025-06-16 20:00] VITALS: BP 150/89; PULSE 66; RESP 16; TEMP 36.8; O2SAT 99
[2025-06-17 07:00] VITALS: BMI 29.4
[2025-06-17 07:46] VITALS: BP 123/71; PULSE 69; RESP 16; TEMP 36.5; O2SAT 100
--- NOTE | 2025-06-17 14:59 | HO.PSYCHPN ---
Subjective Subjective Date of Service: 06/17/25 Reason For Visit: Crisis Subjective Notes: Conditional Voluntary Interim History: Active on unit. social with peers. attending groups. medication compliant. pt reports feeling anxious d/t not knowing where I'm going to go after I leave here. I don't know if I can go back to my friends house or if they will be moved out . Presents with paranoid delusions; focused on [employer] controlling the government and video games. denies SI/HI/VH/AH. [place] level to be drawn on 06/19/25. Medication Compliance: Yes Side effects from medications: No Attending Groups: Yes Mental Status Exam Mental Status Exam Narrative: Pt is alert and oriented; behavior is cooperative and calm; dressed in casual attire; mood is described as anxious ; eye contact appropriate; Speech is normal rate, volume and not pressured; thought process is organized; Thought content is on tx; paranoid; denies SI/HI/VH/AH. Diagnostics Vital Signs (24Hr): Vital Signs - 24 hr 06/16/25 20:00 06/17/25 07:46 Temperature 98.2 F 97.7 F Pulse Rate 66 69 Respiratory Rate 16 16 Blood Pressure 150/89 H 123/71 Pulse Oximetry 99 100 Oxygen Delivery Method Room Air Room Air BMI result Body Mass Index 29.4 Labs 06/11/25 11:32 06/15/25 07:28 Medications Medications Current Medications Al Hydroxide/Mg Hydroxide (Magnesium Hydrox/Alum Hydrox 30 Ml Oral.Susp) 30 ml PO Q6H PRN PRN Reason: Heartburn/Nausea Hydroxyzine HCl (Hydroxyzine Hcl 25 Mg Tablet) 25 mg PO Q6H PRN PRN Reason: mild anxiety [place] Carbonate ([place] Carbonate Er 300 Mg Tablet.Er) 600 mg PO BEDTIME [facility] Last Admin: 06/16/25 22:30 Dose: 600 mg Magnesium Hydroxide (Milk Of Magnesia 30 Ml Oral.Susp) 30 ml PO DAILY PRN PRN Reason: Constipation Nicotine Polacrilex (Nicotine Polacrilex 2 Mg Gum) 4 mg BUCCAL Q2H PRN PRN Reason: Nicotine Cravings Last Admin: 06/17/25 09:06 Dose: 4 mg Olanzapine (Olanzapine 5 Mg Tablet) 5 mg PO Q4H PRN PRN Reason: agitation Olanzapine (Olanzapine 5 Mg Tablet) 5 mg PO BEDTIME [facility] Last Admin: 06/16/25 22:30 Dose: 5 mg Trazodone HCl (Trazodone Hcl 50 Mg Tablet) 50 mg PO BEDTIME MRX1 PRN PRN Reason: Insomnia Allergies Allergies Allergy/AdvReac Type Severity Reaction Status Date / Time acetaminophen (From VICODIN) Allergy Unknown NAUSEA & Verified 06/11/25 11:22 VOMITING hydrocodone (From VICODIN) Allergy Unknown NAUSEA & Verified 06/11/25 11:22 VOMITING sertraline (From Zoloft) Allergy Vomiting Verified 06/11/25 11:22 seasonal Allergy Mild Itchy Eyes Uncoded 10/24/24 15:59 Assessment & Plan Assessment & Plan (1) Bipolar disorder: Status: Acute Code(s): F31.9 - Bipolar disorder, unspecified (2) PTSD (post-traumatic stress disorder): Status: Acute Code(s): F43.10 - Post-traumatic stress disorder, unspecified Plan Patient is a 40-year-old male with history of bipolar disorder and PTSD who presented to ER due to suicidal ideation secondary to increased life stressors. Plan: CV 15 minute safety checks Start: Lihtium ER 600mg PO bedtime Zyprexa 5mg PO bedtime obtain collateral referral to outpatient psychiatric providers encourage groups discharge planning 06/15: Active on unit. attending groups. Patient reports feeling okay today; denies any side effects from starting medications. denies SI/HI/VH/AH. He reports sleeping well last night. denies any withdrawal symptoms. SHEEBA PASTRANAWA. Continue current tx plan. 06/16/25: Slept for 5 hours last night, visible, social, appropriate, however hypomanic, pleasant, and cooperative, attended groups, coloring, went to fresh air break. Compliant with medications. No side effects. Denies delusional or paranoid thoughts, however reported that he felt that way when he was in the emergency room thinking people poisoning his food but not anymore. 06/17: Active on unit. social with peers. attending groups. medication compliant. pt reports feeling anxious d/t not knowing where I'm going to go after I leave here. I don't know if I can go back to my friends house or if they will be moved out . Presents with paranoid delusions; focused on [employer] controlling the government and video games. denies SI/HI/VH/AH. [place] level to be drawn on 06/19/25. Patient educated on: diagnosis and medication risk/benefits Reason for continued inpatient stay Substantial Risk for: med/psych decompensation Time Spent With Patient Time: Total time managing care of this patient today _20___ minutes.
[2025-06-17 20:00] VITALS: BP 123/76; PULSE 70; RESP 18; TEMP 36.7; O2SAT 99
[2025-06-18 07:43] VITALS: BP 103/62; PULSE 58; RESP 16; TEMP 36.4; O2SAT 100
--- NOTE | 2025-06-18 10:22 | P.PNPSI_ITS ---
Subjective Subjective Date of Service: 06/18/25 Reason For Visit: Crisis Subjective Notes: Conditional Voluntary Interim History: Active on unit. social with peers. attending groups. pt reports feeling alright today; pt reports he is no longer having racing thoughts. pt stated, I'm trying to focus on art to distract myself . pt did not make any delusional statements during assessment today. denies SI/HI/VH/AH. [place] level to be drawn on 06/19/25. Continue current tx plan. Medication Compliance: Yes Side effects from medications: No Attending Groups: Yes Mental Status Exam Mental Status Exam Narrative: Pt is alert and oriented; behavior is cooperative and calm; dressed in casual attire; mood is described as anxious ; eye contact appropriate; Speech is normal rate, volume and not pressured; thought process is organized; Thought content is on tx; denies SI/HI/VH/AH. Diagnostics Vital Signs (24Hr): Vital Signs - 24 hr 06/17/25 20:00 06/18/25 07:43 Temperature 98.1 F 97.6 F Pulse Rate 70 58 Respiratory Rate 18 16 Blood Pressure 123/76 103/62 Pulse Oximetry 99 100 Oxygen Delivery Method Room Air Room Air BMI result Body Mass Index 29.4 Labs 06/11/25 11:32 06/15/25 07:28 Medications Medications Current Medications Al Hydroxide/Mg Hydroxide (Magnesium Hydrox/Alum Hydrox 30 Ml Oral.Susp) 30 ml PO Q6H PRN PRN Reason: Heartburn/Nausea Hydroxyzine HCl (Hydroxyzine Hcl 25 Mg Tablet) 25 mg PO Q6H PRN PRN Reason: mild anxiety [place] Carbonate ([place] Carbonate Er 300 Mg Tablet.Er) 600 mg PO BEDTIME [facility] Last Admin: 06/17/25 22:35 Dose: 600 mg Magnesium Hydroxide (Milk Of Magnesia 30 Ml Oral.Susp) 30 ml PO DAILY PRN PRN Reason: Constipation Nicotine Polacrilex (Nicotine Polacrilex 2 Mg Gum) 4 mg BUCCAL Q2H PRN PRN Reason: Nicotine Cravings Last Admin: 06/18/25 08:34 Dose: 4 mg Olanzapine (Olanzapine 5 Mg Tablet) 5 mg PO Q4H PRN PRN Reason: agitation Olanzapine (Olanzapine 5 Mg Tablet) 5 mg PO BEDTIME [facility] Last Admin: 06/17/25 22:36 Dose: 5 mg Trazodone HCl (Trazodone Hcl 50 Mg Tablet) 50 mg PO BEDTIME MRX1 PRN PRN Reason: Insomnia Allergies Allergies Allergy/AdvReac Type Severity Reaction Status Date / Time acetaminophen (From VICODIN) Allergy Unknown NAUSEA & Verified 06/11/25 11:22 VOMITING hydrocodone (From VICODIN) Allergy Unknown NAUSEA & Verified 06/11/25 11:22 VOMITING sertraline (From Zoloft) Allergy Vomiting Verified 06/11/25 11:22 seasonal Allergy Mild Itchy Eyes Uncoded 10/24/24 15:59 Assessment & Plan Assessment & Plan (1) Bipolar disorder: Status: Acute Code(s): F31.9 - Bipolar disorder, unspecified (2) PTSD (post-traumatic stress disorder): Status: Acute Code(s): F43.10 - Post-traumatic stress disorder, unspecified Plan Patient is a 40-year-old male with history of bipolar disorder and PTSD who presented to ER due to suicidal ideation secondary to increased life stressors. Plan: CV 15 minute safety checks Start: Lihtium ER 600mg PO bedtime Zyprexa 5mg PO bedtime obtain collateral referral to outpatient psychiatric providers encourage groups discharge planning 06/15: Active on unit. attending groups. Patient reports feeling okay today; denies any side effects from starting medications. denies SI/HI/VH/AH. He reports sleeping well last night. denies any withdrawal symptoms. SHEEBA MODI. Continue current tx plan. 06/16/25: Slept for 5 hours last night, visible, social, appropriate, however hypomanic, pleasant, and cooperative, attended groups, coloring, went to fresh air break. Compliant with medications. No side effects. Denies delusional or paranoid thoughts, however reported that he felt that way when he was in the emergency room thinking people poisoning his food but not anymore. 06/17: Active on unit. social with peers. attending groups. medication compliant. pt reports feeling anxious d/t not knowing where I'm going to go after I leave here. I don't know if I can go back to my friends house or if they will be moved out . Presents with paranoid delusions; focused on [employer] controlling the government and video games. denies SI/HI/VH/AH. [place] level to be drawn on 06/19/25. 06/18: Active on unit. social with peers. attending groups. pt reports feeling alright today; pt reports he is no longer having racing thoughts. pt stated, I'm trying to focus on art to distract myself . pt did not make any delusional statements during assessment today. denies SI/HI/VH/AH. [place] level to be drawn on 06/19/25. Continue current tx plan. Patient educated on: diagnosis, medication risk/benefits and therapeutic strategies Reason for continued inpatient stay Substantial Risk for: med/psych decompensation Time Spent With Patient Time: Total time managing care of this patient today _20___ minutes.
[2025-06-18 19:50] VITALS: BP 138/83; PULSE 73; TEMP 36.7; O2SAT 100
[2025-06-19 07:53] VITALS: BP 101/53; PULSE 62; RESP 16; TEMP 36.6; O2SAT 99
[2025-06-19 20:15] VITALS: BP 130/74; PULSE 73; RESP 16; TEMP 36.4; O2SAT 100
--- NOTE | 2025-06-19 23:32 | P.PNPSI_ITS ---
Subjective Subjective Date of Service: 06/19/25 Reason For Visit: Crisis Subjective Notes: Conditional Voluntary Healthcare Proxy: No Guardianship: No Medical Problems Affecting Mental Status: No Interim History: Medical record and nursing notes reviewed; case discussed during rounds with team/nursing staff, and met with patient for supportive therapy/psychoeducation, as well as medication management. Medication compliant, slept for 8 hours. Per nursing, social pleasant in the morning yesterday, but mood change since the evening. Not pleasant upon approach. He appears to be anxious, agitated, paranoid. Refused labs work, thinks people are going to use his blood to do something else. Denies voices, denies other safety concerns. His day visible in common areas. Not sure what happened seen yesterday, but he is not who we have known so far. Continue to monitor. Medication Compliance: Yes Side effects from medications: No Attending Groups: Yes Review of Systems Acute medical concerns: No Medical Review of Systems: unchanged Review of Systems Review of Systems Constitutional: Denies fatigue and Denies fever(s) Cardiovascular: Denies chest pain and Denies dyspnea Respiratory: Denies dyspnea Gastrointestinal: Denies abdominal pain Psychiatric: denies suicidal ideation Endocrine: Denies fatigue Yes all other systems are reviewed and are negative Mental Status Exam Mental Status Exam Narrative: Pt is alert and oriented; behavior is passive cooperative, irritable; dressed in casual attire; mood is described as irritable ; eye contact appropriate; Speech is faster that normal rate, volume and not pressured; thought process is disorganized; Thought content is not on tx; denies SI/HI/VH/AH but appear to be paranoid. Diagnostics Vital Signs (24Hr): Vital Signs - 24 hr 06/19/25 07:53 06/19/25 20:15 Temperature 97.9 F 97.6 F Pulse Rate 62 73 Respiratory Rate 16 16 Blood Pressure 101/53 L 130/74 Pulse Oximetry 99 100 Oxygen Delivery Method Room Air Room Air BMI result Body Mass Index 29.4 Labs 06/11/25 11:32 06/15/25 07:28 Medications Medications Current Medications Al Hydroxide/Mg Hydroxide (Magnesium Hydrox/Alum Hydrox 30 Ml Oral.Susp) 30 ml PO Q6H PRN PRN Reason: Heartburn/Nausea Hydroxyzine HCl (Hydroxyzine Hcl 25 Mg Tablet) 25 mg PO Q6H PRN PRN Reason: mild anxiety Last Admin: 06/19/25 22:38 Dose: 25 mg [place] Carbonate ([place] Carbonate Er 300 Mg Tablet.Er) 600 mg PO BEDTIME [facility] Last Admin: 06/19/25 22:38 Dose: 600 mg Magnesium Hydroxide (Milk Of Magnesia 30 Ml Oral.Susp) 30 ml PO DAILY PRN PRN Reason: Constipation Nicotine Polacrilex (Nicotine Polacrilex 2 Mg Gum) 4 mg BUCCAL Q2H PRN PRN Reason: Nicotine Cravings Last Admin: 06/19/25 22:40 Dose: 4 mg Olanzapine (Olanzapine 5 Mg Tablet) 5 mg PO Q4H PRN PRN Reason: agitation Olanzapine (Olanzapine 5 Mg Tablet) 5 mg PO BEDTIME [place] Last Admin: 06/19/25 22:38 Dose: 5 mg Trazodone HCl (Trazodone Hcl 50 Mg Tablet) 50 mg PO BEDTIME MRX1 PRN PRN Reason: Insomnia Last Admin: 06/19/25 22:38 Dose: 50 mg Allergies Allergies Allergy/AdvReac Type Severity Reaction Status Date / Time acetaminophen (From VICODIN) Allergy Unknown NAUSEA & Verified 06/11/25 11:22 VOMITING hydrocodone (From VICODIN) Allergy Unknown NAUSEA & Verified 06/11/25 11:22 VOMITING sertraline (From Zoloft) Allergy Vomiting Verified 06/11/25 11:22 seasonal Allergy Mild Itchy Eyes Uncoded 10/24/24 15:59 Assessment & Plan Assessment & Plan (1) Bipolar disorder: Status: Acute Code(s): F31.9 - Bipolar disorder, unspecified (2) PTSD (post-traumatic stress disorder): Status: Acute Code(s): F43.10 - Post-traumatic stress disorder, unspecified Plan Patient is a 40-year-old male with history of bipolar disorder and PTSD who presented to ER due to suicidal ideation secondary to increased life stressors. Plan: CV 15 minute safety checks Start: Lihtium ER 600mg PO bedtime Zyprexa 5mg PO bedtime obtain collateral referral to outpatient psychiatric providers encourage groups discharge planning 06/19: Refused lithium level. 06/15: Active on unit. attending groups. Patient reports feeling okay today; denies any side effects from starting medications. denies SI/HI/VH/AH. He reports sleeping well last night. denies any withdrawal symptoms. SHEEBA MODI. Continue current tx plan. 06/16/25: Slept for 5 hours last night, visible, social, appropriate, however hypomanic, pleasant, and cooperative, attended groups, coloring, went to fresh air break. Compliant with medications. No side effects. Denies delusional or paranoid thoughts, however reported that he felt that way when he was in the emergency room thinking people poisoning his food but not anymore. 06/17: Active on unit. social with peers. attending groups. medication compliant. pt reports feeling anxious d/t not knowing where I'm going to go after I leave here. I don't know if I can go back to my friends house or if they will be moved out . Presents with paranoid delusions; focused on [employer] controlling the government and video games. denies SI/HI/VH/AH. [place] level to be drawn on 06/19/25. 06/18: Active on unit. social with peers. attending groups. pt reports feeling alright today; pt reports he is no longer having racing thoughts. pt stated, I'm trying to focus on art to distract myself . pt did not make any delusional statements during assessment today. denies SI/HI/VH/AH. [place] level to be drawn on 06/19/25. Continue current tx plan. 06/19/25: Medication compliant, slept for 8 hours. Per nursing, social pleasant in the morning yesterday, but mood change since the evening. Not pleasant upon approach. He appears to be anxious, agitated, paranoid. Refused labs work, thinks people are going to use his blood to do something else. Denies voices, denies other safety concerns. His day visible in common areas. Not sure what happened seen yesterday, but he is not who we have known so far. Continue to monitor. Refused lithium level. Patient educated on: medication risk/benefits and therapeutic strategies Informed Consent: further education needed Reason for continued inpatient stay Substantial Risk for: med/psych decompensation Time Spent With Patient Time: Total time managing care of this patient today ____ minutes.
[2025-06-20 08:00] VITALS: BP 134/85; PULSE 63; RESP 16; TEMP 36.2; O2SAT 99
[2025-06-20 20:00] VITALS: BP 133/78; PULSE 88; RESP 16; TEMP 36.9; O2SAT 98
--- NOTE | 2025-06-20 22:09 | HO.PSYCHPN ---
Subjective Subjective Date of Service: 06/20/25 Reason For Visit: Crisis Subjective Notes: Conditional Voluntary Healthcare Proxy: No Guardianship: No Medical Problems Affecting Mental Status: No Interim History: Medical record and nursing notes reviewed; case discussed during rounds with team/nursing staff, and met with patient for supportive therapy/psychoeducation, as well as medication management. Slept for 8 hours, was medication compliant. Reports that his eyes is twisted and pain the high his head for 2 hours this morning when he was up. He states that he will not taking more medication. He also reported that he waking up having panic attack as in his dreams people are chasing him. Reported that this never happened before in his life. The only medication he wants to take clonazepam which he was never on that before, but given down stairs in the ED. reports constipation, but do not want anything to do deal with it. He said he wants natural prune drinking prune juice. He also reports to nursing that he was coughing blood but no one cares. He said that he file complain about it. Does not observed with abnormal eye movements during assessment, he is paranoid, delusional, irritable. Reports problems but do not want to treatment for anything. He refused lab for lithium. Irritable, but cooperative today compared to yesterday. Visible, social with peers, and attended groups. Medication Compliance: Yes Side effects from medications: Yes Attending Groups: Yes Review of Systems Acute medical concerns: No Medical Review of Systems: unchanged Review of Systems Review of Systems Constitutional: Denies fatigue and Denies fever(s) Cardiovascular: Denies chest pain and Denies dyspnea Respiratory: Denies dyspnea Gastrointestinal: Denies abdominal pain Psychiatric: denies suicidal ideation Endocrine: Denies fatigue Yes all other systems are reviewed and are negative Mental Status Exam Mental Status Exam Narrative: Pt is alert and oriented; behavior is passive cooperative, irritable; dressed in casual attire; mood is described as irritable ; eye contact appropriate; Speech is faster that normal rate, volume and not pressured; thought process is disorganized; Thought content is not on tx; denies SI/HI/VH/AH but appear to be paranoid. Diagnostics Vital Signs (24Hr): Vital Signs - 24 hr 06/20/25 08:00 Temperature 97.2 F Pulse Rate 63 Respiratory Rate 16 Blood Pressure 134/85 Pulse Oximetry 99 Oxygen Delivery Method Room Air BMI result Body Mass Index 29.4 Labs 06/11/25 11:32 06/15/25 07:28 Medications Medications Current Medications Al Hydroxide/Mg Hydroxide (Magnesium Hydrox/Alum Hydrox 30 Ml Oral.Susp) 30 ml PO Q6H PRN PRN Reason: Heartburn/Nausea Hydroxyzine HCl (Hydroxyzine Hcl 50 Mg Tablet) 50 mg PO Q6H PRN PRN Reason: mild anxiety [place] Carbonate ([place] Carbonate Er 300 Mg Tablet.Er) 600 mg PO BEDTIME [facility] Last Admin: 06/19/25 22:38 Dose: 600 mg Magnesium Hydroxide (Milk Of Magnesia 30 Ml Oral.Susp) 30 ml PO DAILY PRN PRN Reason: Constipation Nicotine Polacrilex (Nicotine Polacrilex 2 Mg Gum) 4 mg BUCCAL Q2H PRN PRN Reason: Nicotine Cravings Last Admin: 06/20/25 21:52 Dose: 4 mg Olanzapine (Olanzapine 5 Mg Tablet) 5 mg PO Q4H PRN PRN Reason: agitation Olanzapine (Olanzapine 5 Mg Tablet) 5 mg PO BEDTIME [place] Last Admin: 06/19/25 22:38 Dose: 5 mg Trazodone HCl (Trazodone Hcl 50 Mg Tablet) 50 mg PO BEDTIME MRX1 PRN PRN Reason: Insomnia Last Admin: 06/19/25 22:38 Dose: 50 mg Allergies Allergies Allergy/AdvReac Type Severity Reaction Status Date / Time acetaminophen (From VICODIN) Allergy Unknown NAUSEA & Verified 06/11/25 11:22 VOMITING hydrocodone (From VICODIN) Allergy Unknown NAUSEA & Verified 06/11/25 11:22 VOMITING sertraline (From Zoloft) Allergy Vomiting Verified 06/11/25 11:22 seasonal Allergy Mild Itchy Eyes Uncoded 10/24/24 15:59 Assessment & Plan Assessment & Plan (1) Bipolar disorder: Status: Acute Code(s): F31.9 - Bipolar disorder, unspecified (2) PTSD (post-traumatic stress disorder): Status: Acute Code(s): F43.10 - Post-traumatic stress disorder, unspecified Plan Patient is a 40-year-old male with history of bipolar disorder and PTSD who presented to ER due to suicidal ideation secondary to increased life stressors. Plan: CV 15 minute safety checks Start: Lihtium ER 600mg PO bedtime Zyprexa 5mg PO bedtime obtain collateral referral to outpatient psychiatric providers encourage groups discharge planning 06/19: Refused lithium level. 06/15: Active on unit. attending groups. Patient reports feeling okay today; denies any side effects from starting medications. denies SI/HI/VH/AH. He reports sleeping well last night. denies any withdrawal symptoms. DC CIWA. Continue current tx plan. 06/16/25: Slept for 5 hours last night, visible, social, appropriate, however hypomanic, pleasant, and cooperative, attended groups, coloring, went to fresh air break. Compliant with medications. No side effects. Denies delusional or paranoid thoughts, however reported that he felt that way when he was in the emergency room thinking people poisoning his food but not anymore. 06/17: Active on unit. social with peers. attending groups. medication compliant. pt reports feeling anxious d/t not knowing where I'm going to go after I leave here. I don't know if I can go back to my friends house or if they will be moved out . Presents with paranoid delusions; focused on [employer] controlling the [employer] and video games. denies SI/HI/VH/AH. [place] level to be drawn on 06/19/25. 06/18: Active on unit. social with peers. attending groups. pt reports feeling alright today; pt reports he is no longer having racing thoughts. pt stated, I'm trying to focus on art to distract myself . pt did not make any delusional statements during assessment today. denies SI/HI/VH/AH. [place] level to be drawn on 06/19/25. Continue current tx plan. 06/19/25: Medication compliant, slept for 8 hours. Per nursing, social pleasant in the morning yesterday, but mood change since the evening. Not pleasant upon approach. He appears to be anxious, agitated, paranoid. Refused labs work, thinks people are going to use his blood to do something else. Denies voices, denies other safety concerns. His day visible in common areas. Not sure what happened seen yesterday, but he is not who we have known so far. Continue to monitor. Refused lithium level: 06/20/25: Slept for 8 hours, was medication compliant. Reports that his eyes is twisted and pain the high his head for 2 hours this morning when he was up. He states that he will not taking more medication. He also reported that he waking up having panic attack as in his dreams people are chasing him. Reported that this never happened before in his life. The only medication he wants to take clonazepam which he was never on that before, but given down stairs in the ED. reports constipation, but do not want anything to do deal with it. He said he wants natural prune drinking prune juice. He also reports to nursing that he was coughing blood but no one cares. He said that he file complain about it. Does not observed with abnormal eye movements during assessment, he is paranoid, delusional, irritable. Reports problems but do not want to treatment for anything. He refused lab for lithium. Irritable, but cooperative today compared to yesterday. Visible, social with peers, and attended groups Patient educated on: medication risk/benefits and therapeutic strategies Informed Consent: further education needed Reason for continued inpatient stay Substantial Risk for: med/psych decompensation Time Spent With Patient Time: Total time managing care of this patient today ____ minutes.
[2025-06-21 08:00] VITALS: BP 95/51; PULSE 62; RESP 16; TEMP 36.9; O2SAT 99
--- NOTE | 2025-06-21 10:28 | P.PNPSI_ITS ---
Subjective Subjective Date of Service: 06/21/25 Reason For Visit: Crisis Subjective Notes: Conditional Voluntary Interim History: Active on unit. social with peers. medication compliant. Patient reports feeling good today; pt stated, I'm not feeling anxious or depressed. I feel fine . declining lab work despite being educated regarding importance; pt stated, I don't like needles. I'm not going to keep letting them take my blood . denies SI/HI/VH/AH. Plan on discharging home Saturday; pt aware. Medication Compliance: Yes Side effects from medications: No Attending Groups: Yes Mental Status Exam Mental Status Exam Narrative: Pt is alert and oriented; behavior is cooperative and calm; dressed in casual attire; mood is described as good ; eye contact appropriate; Speech is normal rate, volume and not pressured; thought process is organized; Thought content is on discharge; denies SI/HI/VH/AH. Diagnostics Vital Signs (24Hr): Vital Signs - 24 hr 06/20/25 20:00 06/21/25 08:00 Temperature 98.4 F 98.5 F Pulse Rate 88 62 Respiratory Rate 16 16 Blood Pressure 133/78 95/51 L Pulse Oximetry 98 99 Oxygen Delivery Method Room Air BMI result Body Mass Index 29.4 Labs 06/11/25 11:32 06/15/25 07:28 Medications Medications Current Medications Al Hydroxide/Mg Hydroxide (Magnesium Hydrox/Alum Hydrox 30 Ml Oral.Susp) 30 ml PO Q6H PRN PRN Reason: Heartburn/Nausea Hydroxyzine HCl (Hydroxyzine Hcl 50 Mg Tablet) 50 mg PO Q6H PRN PRN Reason: mild anxiety [place] Carbonate ([place] Carbonate Er 300 Mg Tablet.Er) 600 mg PO BEDTIME [facility] Last Admin: 06/20/25 22:44 Dose: 600 mg Magnesium Hydroxide (Milk Of Magnesia 30 Ml Oral.Susp) 30 ml PO DAILY PRN PRN Reason: Constipation Nicotine Polacrilex (Nicotine Polacrilex 2 Mg Gum) 4 mg BUCCAL Q2H PRN PRN Reason: Nicotine Cravings Last Admin: 06/21/25 08:18 Dose: 4 mg Olanzapine (Olanzapine 5 Mg Tablet) 5 mg PO Q4H PRN PRN Reason: agitation Olanzapine (Olanzapine 5 Mg Tablet) 5 mg PO BEDTIME [facility] Last Admin: 06/20/25 22:45 Dose: 5 mg Trazodone HCl (Trazodone Hcl 50 Mg Tablet) 50 mg PO BEDTIME MRX1 PRN PRN Reason: Insomnia Last Admin: 06/20/25 22:45 Dose: 50 mg Allergies Allergies Allergy/AdvReac Type Severity Reaction Status Date / Time acetaminophen (From VICODIN) Allergy Unknown NAUSEA & Verified 06/11/25 11:22 VOMITING hydrocodone (From VICODIN) Allergy Unknown NAUSEA & Verified 06/11/25 11:22 VOMITING sertraline (From Zoloft) Allergy Vomiting Verified 06/11/25 11:22 seasonal Allergy Mild Itchy Eyes Uncoded 10/24/24 15:59 Assessment & Plan Assessment & Plan (1) Bipolar disorder: Status: Acute Code(s): F31.9 - Bipolar disorder, unspecified (2) PTSD (post-traumatic stress disorder): Status: Acute Code(s): F43.10 - Post-traumatic stress disorder, unspecified Plan Patient is a 40-year-old male with history of bipolar disorder and PTSD who presented to ER due to suicidal ideation secondary to increased life stressors. Plan: CV 15 minute safety checks Start: Lihtium ER 600mg PO bedtime Zyprexa 5mg PO bedtime obtain collateral referral to outpatient psychiatric providers encourage groups discharge planning 06/19: Refused lithium level. 06/15: Active on unit. attending groups. Patient reports feeling okay today; denies any side effects from starting medications. denies SI/HI/VH/AH. He reports sleeping well last night. denies any withdrawal symptoms. SHEEBA MODI. Continue current tx plan. 06/16/25: Slept for 5 hours last night, visible, social, appropriate, however hypomanic, pleasant, and cooperative, attended groups, coloring, went to fresh air break. Compliant with medications. No side effects. Denies delusional or paranoid thoughts, however reported that he felt that way when he was in the emergency room thinking people poisoning his food but not anymore. 06/17: Active on unit. social with peers. attending groups. medication compliant. pt reports feeling anxious d/t not knowing where I'm going to go after I leave here. I don't know if I can go back to my friends house or if they will be moved out . Presents with paranoid delusions; focused on [employer] controlling the government and video games. denies SI/HI/VH/AH. [place] level to be drawn on 06/19/25. 06/18: Active on unit. social with peers. attending groups. pt reports feeling alright today; pt reports he is no longer having racing thoughts. pt stated, I'm trying to focus on art to distract myself . pt did not make any delusional statements during assessment today. denies SI/HI/VH/AH. [place] level to be drawn on 06/19/25. Continue current tx plan. 06/19/25: Medication compliant, slept for 8 hours. Per nursing, social pleasant in the morning yesterday, but mood change since the evening. Not pleasant upon approach. He appears to be anxious, agitated, paranoid. Refused labs work, thinks people are going to use his blood to do something else. Denies voices, denies other safety concerns. His day visible in common areas. Not sure what happened seen yesterday, but he is not who we have known so far. Continue to monitor. Refused lithium level: 06/20/25: Slept for 8 hours, was medication compliant. Reports that his eyes is twisted and pain the high his head for 2 hours this morning when he was up. He states that he will not taking more medication. He also reported that he waking up having panic attack as in his dreams people are chasing him. Reported that this never happened before in his life. The only medication he wants to take clonazepam which he was never on that before, but given down stairs in the ED. reports constipation, but do not want anything to do deal with it. He said he wants natural prune drinking prune juice. He also reports to nursing that he was coughing blood but no one cares. He said that he file complain about it. Does not observed with abnormal eye movements during assessment, he is paranoid, delusional, irritable. Reports problems but do not want to treatment for anything. He refused lab for lithium. Irritable, but cooperative today compared to yesterday. Visible, social with peers, and attended groups 06/21: Active on unit. social with peers. medication compliant. Patient reports feeling good today; pt stated, I'm not feeling anxious or depressed. I feel fine . declining lab work despite being educated regarding importance; pt stated, I don't like needles. I'm not going to keep letting them take my blood . denies SI/HI/VH/AH. per nursing, slept 7 hours last night. Plan on discharging home Saturday; pt aware. Patient educated on: diagnosis and medication risk/benefits Reason for continued inpatient stay Substantial Risk for: med/psych decompensation Time Spent With Patient Time: Total time managing care of this patient today _20___ minutes.
[2025-06-21 16:41] LABS: Lithium 0.28 mmol/L (0.60-1.20)
[2025-06-21 16:48] LABS: Anion Gap 10 (12-20); Blood Urea Nitrogen 18 mg/dL (9-16); Carbon Dioxide 27 mmol/L (22-29); Chloride 108 mmol/L (96-108); Creatinine Clr Calc Pharmacy 136.1; Estimated Glomerular Filt Rate > 60; Potassium 4.2 mmol/L (3.3-5.1); Sodium 141 mmol/L (135-145)
[2025-06-21 20:00] VITALS: BP 134/75; PULSE 80; RESP 16; TEMP 37.4; O2SAT 98
[2025-06-22 08:00] VITALS: BP 96/55; PULSE 58; RESP 14; TEMP 36.6; O2SAT 99
--- NOTE | 2025-06-22 10:28 | HO.PSYCHPN ---
Subjective Subjective Date of Service: 06/22/25 Reason For Visit: Crisis Subjective Notes: Conditional Voluntary Interim History: Active on unit. social with peers. attending groups. Patient continues to report feeling good ; lithium level 0.28 on 06/21/25. denies SI/HI/VH/AH. He reports sleeping well. Patient reports he plans on following up with outpatient providers when discharged. Medication Compliance: Yes Side effects from medications: No Attending Groups: Yes Mental Status Exam Mental Status Exam Narrative: Pt is alert and oriented; behavior is cooperative and calm; dressed in casual attire; mood is described as good ; eye contact appropriate; Speech is normal rate, volume and not pressured; thought process is organized; Thought content is on discharge; denies SI/HI/VH/AH. Diagnostics Vital Signs (24Hr): Vital Signs - 24 hr 06/21/25 20:00 06/22/25 08:00 Temperature 99.3 F 97.8 F Pulse Rate 80 58 Respiratory Rate 16 14 Blood Pressure 134/75 96/55 L Pulse Oximetry 98 99 Oxygen Delivery Method Room Air Room Air BMI result Body Mass Index 29.4 Labs 06/11/25 11:32 06/21/25 16:13 Labs: Laboratory Results - last 48 hr 06/21/25 16:13 Sodium 141 Potassium 4.2 Chloride 108 Carbon Dioxide 27 Anion Gap 10 L BUN 18 H Creatinine 0.81 Estim Creat Clear Calc 136.1 Estimated GFR > 60 [place] 0.28 L Medications Medications Current Medications Al Hydroxide/Mg Hydroxide (Magnesium Hydrox/Alum Hydrox 30 Ml Oral.Susp) 30 ml PO Q6H PRN PRN Reason: Heartburn/Nausea Hydroxyzine HCl (Hydroxyzine Hcl 50 Mg Tablet) 50 mg PO Q6H PRN PRN Reason: mild anxiety [place] Carbonate ([place] Carbonate Er 300 Mg Tablet.Er) 600 mg PO BEDTIME WILVER Last Admin: 06/21/25 22:36 Dose: 600 mg Magnesium Hydroxide (Milk Of Magnesia 30 Ml Oral.Susp) 30 ml PO DAILY PRN PRN Reason: Constipation Nicotine Polacrilex (Nicotine Polacrilex 2 Mg Gum) 4 mg BUCCAL Q2H PRN PRN Reason: Nicotine Cravings Last Admin: 06/22/25 08:40 Dose: 4 mg Olanzapine (Olanzapine 5 Mg Tablet) 5 mg PO Q4H PRN PRN Reason: agitation Olanzapine (Olanzapine 5 Mg Tablet) 5 mg PO BEDTIME WILVER Last Admin: 06/21/25 22:36 Dose: 5 mg Trazodone HCl (Trazodone Hcl 50 Mg Tablet) 50 mg PO BEDTIME MRX1 PRN PRN Reason: Insomnia Last Admin: 06/20/25 22:45 Dose: 50 mg Allergies Allergies Allergy/AdvReac Type Severity Reaction Status Date / Time acetaminophen (From VICODIN) Allergy Unknown NAUSEA & Verified 06/11/25 11:22 VOMITING hydrocodone (From VICODIN) Allergy Unknown NAUSEA & Verified 06/11/25 11:22 VOMITING sertraline (From Zoloft) Allergy Vomiting Verified 06/11/25 11:22 seasonal Allergy Mild Itchy Eyes Uncoded 10/24/24 15:59 Assessment & Plan Assessment & Plan (1) Bipolar disorder: Status: Acute Code(s): F31.9 - Bipolar disorder, unspecified (2) PTSD (post-traumatic stress disorder): Status: Acute Code(s): F43.10 - Post-traumatic stress disorder, unspecified Plan Patient is a 40-year-old male with history of bipolar disorder and PTSD who presented to ER due to suicidal ideation secondary to increased life stressors. Plan: CV 15 minute safety checks Start: Lihtium ER 600mg PO bedtime Zyprexa 5mg PO bedtime obtain collateral referral to outpatient psychiatric providers encourage groups discharge planning 06/19: Refused lithium level. 06/15: Active on unit. attending groups. Patient reports feeling okay today; denies any side effects from starting medications. denies SI/HI/VH/AH. He reports sleeping well last night. denies any withdrawal symptoms. SHEEBA MODI. Continue current tx plan. 06/16/25: Slept for 5 hours last night, visible, social, appropriate, however hypomanic, pleasant, and cooperative, attended groups, coloring, went to fresh air break. Compliant with medications. No side effects. Denies delusional or paranoid thoughts, however reported that he felt that way when he was in the emergency room thinking people poisoning his food but not anymore. 06/17: Active on unit. social with peers. attending groups. medication compliant. pt reports feeling anxious d/t not knowing where I'm going to go after I leave here. I don't know if I can go back to my friends house or if they will be moved out . Presents with paranoid delusions; focused on [employer] controlling the [employer] and video games. denies SI/HI/VH/AH. [place] level to be drawn on 06/19/25. 06/18: Active on unit. social with peers. attending groups. pt reports feeling alright today; pt reports he is no longer having racing thoughts. pt stated, I'm trying to focus on art to distract myself . pt did not make any delusional statements during assessment today. denies SI/HI/VH/AH. [place] level to be drawn on 06/19/25. Continue current tx plan. 06/19/25: Medication compliant, slept for 8 hours. Per nursing, social pleasant in the morning yesterday, but mood change since the evening. Not pleasant upon approach. He appears to be anxious, agitated, paranoid. Refused labs work, thinks people are going to use his blood to do something else. Denies voices, denies other safety concerns. His day visible in common areas. Not sure what happened seen yesterday, but he is not who we have known so far. Continue to monitor. Refused lithium level: 06/20/25: Slept for 8 hours, was medication compliant. Reports that his eyes is twisted and pain the high his head for 2 hours this morning when he was up. He states that he will not taking more medication. He also reported that he waking up having panic attack as in his dreams people are chasing him. Reported that this never happened before in his life. The only medication he wants to take clonazepam which he was never on that before, but given down stairs in the ED. reports constipation, but do not want anything to do deal with it. He said he wants natural prune drinking prune juice. He also reports to nursing that he was coughing blood but no one cares. He said that he file complain about it. Does not observed with abnormal eye movements during assessment, he is paranoid, delusional, irritable. Reports problems but do not want to treatment for anything. He refused lab for lithium. Irritable, but cooperative today compared to yesterday. Visible, social with peers, and attended groups 06/21: Active on unit. social with peers. medication compliant. Patient reports feeling good today; pt stated, I'm not feeling anxious or depressed. I feel fine . declining lab work despite being educated regarding importance; pt stated, I don't like needles. I'm not going to keep letting them take my blood . denies SI/HI/VH/AH. per nursing, slept 7 hours last night. Plan on discharging home Saturday; pt aware. 06/22: Active on unit. social with peers. attending groups. Patient continues to report feeling good ; lithium level 0.28 on 06/21/25. denies SI/HI/VH/AH. He reports sleeping well. Patient reports he plans on following up with outpatient providers when discharged. Patient educated on: diagnosis and medication risk/benefits Reason for continued inpatient stay Substantial Risk for: stable for discharge Time Spent With Patient Time: Total time managing care of this patient today _20___ minutes.
[2025-06-22 20:00] VITALS: BP 125/68; PULSE 78; RESP 16; TEMP 36.8; O2SAT 99
[2025-06-23 07:39] VITALS: BP 96/54; PULSE 62; RESP 18; TEMP 36.8; O2SAT 99
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
== END 2025-06-23 09:46 | disposition home or self-care (01) | DRG 753 ==
LOC: HO.ED 13:55 → HO.PADLT16 06-14 11:15
PROVIDERS: Physician Assistant; Admitting Provider Registered Nurse; Emergency Provider Emergency Medicine; Responsible Provider Registered Nurse; Visit Provider Psychiatry & Neurology Psychiatry
DX: F31.60 Bipolar disorder, current episode mixed, unspecified (principal); R45.851 Suicidal ideations; F17.210 Nicotine dependence, cigarettes, uncomplicated; Z71.6 Tobacco abuse counseling; Z59.811 Housing instability, housed, with risk of homelessness; Z79.899 Other long term (current) drug therapy
CPT/HCPCS: 36415; 73610; 80051; 80053; 80061; 80143; 80178; 80179; 80307; 81001; 82565; 83036; 84520; 85025; 87086; 99284; S9485

== ENCOUNTER → 2025-06-11 12:53 | Outpatient (BNV) | payer OTHER, SELFPAY | PROVIDERS: Emergency Provider Emergency Medicine; Visit Provider Psychiatry & Neurology Psychiatry | DX: F31.60 Bipolar disorder, current episode mixed, unspecified (principal); F43.10 Post-traumatic stress disorder, unspecified; R45.851 Suicidal ideations; F41.9 Anxiety disorder, unspecified; F60.9 Personality disorder, unspecified; F43.23 Adjustment disorder with mixed anxiety and depressed mood | CPT/HCPCS: 99285 ==

== ENCOUNTER → 2025-06-11 16:12 | Outpatient (BNV) | payer MEDICAID, SELFPAY | PROVIDERS: Emergency Provider Emergency Medicine; Visit Provider Radiology Diagnostic Radiology | DX: M25.571 Pain in right ankle and joints of right foot (principal) | CPT/HCPCS: 73610 ==